=== PATIENT | female | born 1965 | race Caucasian/White ===

== ENCOUNTER 2021-07-12 14:27 | Emergency (ER) | payer OTHER | END 2021-07-12 16:30 | disposition left against medical advice (07) | LOC: EMS 14:30 | DX: R45.851 Suicidal ideations (principal); Z53.21 Procedure and treatment not carried out due to patient leaving prior to being seen by health care provider ==

== ENCOUNTER 2021-08-11 14:05 | Inpatient (IN) | payer MEDICAID, OTHER ==
[~2021-08-11] VITALS: Ht 172.7 cm; Wt 57.2 kg
[2021-08-11 14:46] LABS: GLUCOMETER DEV NAME(LOC) ERT.5; GLUCOSE,POINT OF CARE 89 MG/DL (70-110)
[2021-08-11] MEDS ORDERED: ZOLPIDEM TARTRATE 10 MG TABLET PO PRN (17:00)
[2021-08-11 17:45] LABS: COVID AG,FIA SOURCE NASOPHARYNGEAL
[2021-08-11 17:46] LABS: BASOPHILS % (AUTO) 0.5 % (0.0-2.0); EOSINOPHILS % (AUTO) 1.5 % (1.0-6.0); HEMOGLOBIN 11.4 g/dL (12.0-16.0); LYMPHOCYTES # (AUTO) 2.7 K/uL (1.0-4.8); LYMPHOCYTES % (AUTO) 36.7 % (22.0-44.0); MEAN CORPUSCULAR HEMOGLOBIN 29.9 pg (26.0-34.0); MEAN CORPUSCULAR HGB CONC 33.6 G/dL (31.0-37.0); MEAN CORPUSCULAR VOLUME 89 fL (80-100); MONOCYTES # (AUTO) 0.5 K/uL (0.1-1.0); MONOCYTES % (AUTO) 7.1 % (2.0-9.0); NEUTROPHILS % (AUTO) 54.2 % (40.0-70.0); PLATELET COUNT (AUTO) 231 K/uL (150-450); RED BLOOD CELL COUNT(AUTO) 3.81 MIL/uL (4.00-5.20); RED CELL DISTRIBUTION WIDTH 12.8 % (11.5-14.5)
[2021-08-11 17:55] LABS: ANION GAP 8 mmol/L (8-16); CALCIUM, TOTAL 8.9 mg/dL (8.8-10.5); CARBON DIOXIDE 30 mmol/L (22-29); CHLORIDE 106 mmol/L (98-107); CREATININE 0.57 mg/dL (0.60-1.30); GLOMERULAR FILTR. RATE CALC > 60 mL/min (>60); GLUCOSE,RANDOM 93 mg/dL (70-110); POTASSIUM 3.6 mmol/L (3.5-5.1); SODIUM SERUM 144 mmol/L (136-145); UREA NITROGEN, BLOOD 17 mg/dL (7-18)
[2021-08-11 18:01] LABS: ALANINE AMINOTRANSFERASE 45 U/L (12-78); ALBUMIN 3.2 g/dL (3.4-5.0); ALKALINE PHOSPHATASE 81 U/L (46-116); ASPARTATE AMINOTRANSFERASE 17 U/L (15-37); BILIRUBIN,TOTAL 0.4 mg/dL (0.1-1.0); TOTAL PROTEIN, SERUM 6.2 g/dL (6.4-8.2)
[2021-08-11 19:42] VITALS: BP 93/65
[2021-08-11] MEDS ORDERED: ACETAMINOPHEN 325 MG TABLET PO PRN (19:45)
[2021-08-12 08:00] VITALS: BP 125/71
[2021-08-12 08:16] LABS: CHOL/HDL RATIO 3.4 (3.9-5.7)
[2021-08-12] MEDS ORDERED: DOCUSATE SODIUM 100 MG CAPSULE PO PRN (11:30)
[2021-08-12] MEDS ORDERED: PETROLATUM,WHITE 28 GM JELLY TP PRN (11:30)
[2021-08-12] MEDS ORDERED: MAG HYDROX/AL HYDROX/SIMETH ES 30 ML SUSPENSION UDCUP PO PRN (11:30)
[2021-08-12] MEDS ORDERED: ONDANSETRON HCL 4 MG TABLET PO PRN (11:30)
[2021-08-12] MEDS ORDERED: MAGNESIUM HYDROXIDE SUSPENSION 30 ML UDCUP PO PRN (11:30)
[2021-08-12] MEDS ORDERED: ACETAMINOPHEN 325 MG TABLET PO PRN (11:30)
[2021-08-12] MEDS ORDERED: ALBUTEROL SULFATE HFA 90 MCG/PUFF 8 GM INHALER IH PRN (11:30)
[2021-08-12] MEDS ORDERED: NICOTINE 14 MG/24 HOUR PATCH TD PRN (11:30)
[2021-08-12] MEDS ORDERED: CloNIDine HCL 0.1 MG TABLET PO PRN (11:30)
[2021-08-12] MEDS ORDERED: GuaiFENesin/D-METHORPHAN [SUGAR-FREE] 200-20MG/10 ML SYRUP UDCUP PO PRN (11:30)
[2021-08-12] MEDS ORDERED: LOPERAMIDE HCL 2 MG CAPSULE PO PRN (11:30)
[2021-08-12] MEDS ORDERED: CITA-144 PO (12:53)
[2021-08-12 16:23] VITALS: BP 126/77
[2021-08-12] MEDS: HALOPERIDOL 5 MG TABLET PO PRN (17:53)
[2021-08-12] MEDS: LORazepam 2 MG TABLET PO PRN (17:53)
[2021-08-12] MEDS: RisperiDONE 1 MG TABLET PO SCH (21:00)
[2021-08-13 08:02] VITALS: BP 143/79
[2021-08-13] MEDS: CITALOPRAM HYDROBROMIDE 20 MG TABLET PO SCH (08:24)
[2021-08-13] MEDS: RisperiDONE 1 MG TABLET PO SCH ×3 (08:24→21:00)
[2021-08-13] MEDS: LORazepam 2 MG TABLET PO PRN (08:24)
[2021-08-13] MEDS: HALOPERIDOL 5 MG TABLET PO PRN (08:24)
[2021-08-13 09:43] LABS: APPEARANCE,URINE CLEAR (CLEAR); BILIRUBIN,URINE NEGATIVE (NEGATIVE); GLUCOSE, URINE (UA) NEGATIVE (NEGATIVE); KETONES,URINE NEGATIVE (NEGATIVE); LEUKOCYTE ESTERASE ,URINE NEGATIVE (NEGATIVE); NITRATE,URINE NEGATIVE (NEGATIVE); OCCULT BLOOD,URINE TRACE (NEGATIVE); PH,URINE 5.5 (5.0-8.0); PROTEIN,URINE NEGATIVE (NEGATIVE); UROBILINOGEN,URINE 0.2 mg/dL (<=1.0)
[2021-08-13 09:46] LABS: BACTERIA,URINE None Seen /HPF (None Seen); RBC,URINE 0-2 /HPF (0-2); WBC,URINE None Seen /HPF (0-5)
[2021-08-13 09:49] LABS: AMPHET/METH SCREEN,URINE NEGATIVE (NEGATIVE); BARBITURATE SCREEN, URINE NEGATIVE (NEGATIVE); BENZODIAZEPINES SCREEN,URINE NEGATIVE (NEGATIVE); CANNABINOID SCREEN,URINE NEGATIVE (NEGATIVE); COCAINE SCREEN,URINE NEGATIVE (NEGATIVE); METHADONE SCREEN, URINE NEGATIVE (NEGATIVE); OPIATE SCREEN,URINE NEGATIVE (NEGATIVE); PHENCYCLIDINE SCREEN,URINE NEGATIVE (NEGATIVE)
[2021-08-13 17:56] VITALS: BP 101/60
[2021-08-14 08:00] VITALS: BP 117/73
[2021-08-14] MEDS: CITALOPRAM HYDROBROMIDE 20 MG TABLET PO SCH (09:00)
[2021-08-14] MEDS: RisperiDONE 1 MG TABLET PO SCH ×2 (09:00→20:32)
[2021-08-14] MEDS: LORazepam 2 MG TABLET PO PRN (16:06)
[2021-08-14 16:57] VITALS: BP 120/74
[2021-08-15] MEDS: RisperiDONE 1 MG TABLET PO SCH ×2 (08:08→20:15)
[2021-08-15] MEDS: CITALOPRAM HYDROBROMIDE 20 MG TABLET PO SCH (08:08)
[2021-08-16] MEDS: CITALOPRAM HYDROBROMIDE 20 MG TABLET PO SCH (08:30)
[2021-08-16] MEDS: RisperiDONE 1 MG TABLET PO SCH ×2 (08:30→21:29)
[2021-08-16] MEDS: LORazepam 2 MG TABLET PO PRN ×3 (08:31→21:29)
[2021-08-16] MEDS: HALOPERIDOL 5 MG TABLET PO PRN ×2 (08:31→11:00)
[2021-08-16] MEDS: IBUPROFEN 400 MG TABLET PO PRN (11:30)
[2021-08-16 12:22] VITALS: BP 98/69
[2021-08-16 16:17] VITALS: BP 128/77
[2021-08-17] MEDS: CITALOPRAM HYDROBROMIDE 20 MG TABLET PO SCH (07:58)
[2021-08-17] MEDS: RisperiDONE 1 MG TABLET PO SCH (07:58)
[2021-08-17 08:15] VITALS: BP 98/61
[2021-08-17] MEDS: IBUPROFEN 400 MG TABLET PO PRN (08:15)
[2021-08-17 16:00] VITALS: BP 123/76
[2021-08-17] MEDS: LORazepam 2 MG TABLET PO PRN (16:47)
[2021-08-17] MEDS: HALOPERIDOL 5 MG TABLET PO PRN (16:47)
[2021-08-17] MEDS: RisperiDONE 2 MG TABLET PO SCH (21:12)
[2021-08-18 07:41] LABS: COVID AG,FIA SOURCE NASAL SWAB
[2021-08-18] MEDS: RisperiDONE 2 MG TABLET PO SCH ×2 (08:02→21:03)
[2021-08-18] MEDS: CITALOPRAM HYDROBROMIDE 20 MG TABLET PO SCH (08:02)
[2021-08-18 08:29] VITALS: BP 95/57
[2021-08-18 16:35] VITALS: BP 119/67
[2021-08-18] MEDS: LORazepam 2 MG TABLET PO PRN (16:38)
[2021-08-18] MEDS: HALOPERIDOL 5 MG TABLET PO PRN (16:39)
[2021-08-19 07:12] LABS: MAGNESIUM 1.7 mg/dL (1.80-2.40); PHOSPHORUS 3.7 mg/dL (2.5-4.9)
[2021-08-19] MEDS: RisperiDONE 2 MG TABLET PO SCH ×2 (09:28→20:11)
[2021-08-19] MEDS: MULTIVITAMINS, THERAPEUTIC TABLET PO SCH (09:28)
[2021-08-19] MEDS: CITALOPRAM HYDROBROMIDE 20 MG TABLET PO SCH (09:29)
[2021-08-19 16:02] VITALS: BP 95/55
[2021-08-19] MEDS ORDERED: MAGNESIUM OXIDE 400 MG TABLET PO ONE (16:30)
[2021-08-19] MEDS: HALOPERIDOL 5 MG TABLET PO PRN (16:30)
[2021-08-20] MEDS: RisperiDONE 2 MG TABLET PO SCH ×2 (09:58→20:05)
[2021-08-20] MEDS: CITALOPRAM HYDROBROMIDE 20 MG TABLET PO SCH (09:58)
[2021-08-20] MEDS: MULTIVITAMINS, THERAPEUTIC TABLET PO SCH (09:59)
[2021-08-20] MEDS: LORazepam 2 MG TABLET PO PRN (11:34)
[2021-08-20 16:03] VITALS: BP 98/55
[2021-08-21] MEDS: LORazepam 2 MG TABLET PO PRN (08:07)
[2021-08-21] MEDS: CITALOPRAM HYDROBROMIDE 20 MG TABLET PO SCH (08:07)
[2021-08-21] MEDS: RisperiDONE 2 MG TABLET PO SCH ×2 (08:07→20:02)
[2021-08-21] MEDS: MULTIVITAMINS, THERAPEUTIC TABLET PO SCH (08:07)
[2021-08-21 09:36] VITALS: BP 90/54
[2021-08-21 11:00] VITALS: BP 111/63
[2021-08-21] MEDS: HALOPERIDOL 5 MG TABLET PO PRN (15:52)
[2021-08-21 16:07] VITALS: BP 109/77
[2021-08-22] MEDS: IBUPROFEN 400 MG TABLET PO PRN ×2 (08:04→20:18)
[2021-08-22] MEDS: MULTIVITAMINS, THERAPEUTIC TABLET PO SCH (08:04)
[2021-08-22 08:05] VITALS: BP 94/51
[2021-08-22] MEDS: CITALOPRAM HYDROBROMIDE 20 MG TABLET PO SCH (08:05)
[2021-08-22] MEDS: RisperiDONE 2 MG TABLET PO SCH ×2 (08:05→20:18)
[2021-08-22 16:02] VITALS: BP 98/55
[2021-08-23] MEDS: CITALOPRAM HYDROBROMIDE 20 MG TABLET PO SCH (08:21)
[2021-08-23] MEDS: RisperiDONE 2 MG TABLET PO SCH ×2 (08:21→20:22)
[2021-08-23] MEDS: MULTIVITAMINS, THERAPEUTIC TABLET PO SCH (08:21)
[2021-08-23 08:45] VITALS: BP 63/33
[2021-08-23 16:10] VITALS: BP 108/60
[2021-08-23] MEDS: HALOPERIDOL 5 MG TABLET PO PRN (16:23)
[2021-08-23] MEDS: LORazepam 2 MG TABLET PO PRN (20:22)
[2021-08-24 08:08] VITALS: BP 94/55
[2021-08-24] MEDS: LORazepam 2 MG TABLET PO PRN (08:33)
[2021-08-24] MEDS: RisperiDONE 2 MG TABLET PO SCH ×2 (08:33→20:02)
[2021-08-24] MEDS: CITALOPRAM HYDROBROMIDE 20 MG TABLET PO SCH (08:33)
[2021-08-24] MEDS: MULTIVITAMINS, THERAPEUTIC TABLET PO SCH (08:33)
[2021-08-24] MEDS: IBUPROFEN 400 MG TABLET PO PRN (08:38)
[2021-08-24 16:46] VITALS: BP 106/73
[2021-08-24] MEDS: HALOPERIDOL 5 MG TABLET PO PRN (16:48)
[2021-08-25 08:17] LABS: COVID AG,FIA SOURCE NASAL SWAB
[2021-08-25 08:24] VITALS: BP 100/54
[2021-08-25] MEDS: MULTIVITAMINS, THERAPEUTIC TABLET PO SCH (11:14)
[2021-08-25] MEDS: RisperiDONE 2 MG TABLET PO SCH ×2 (11:14→20:25)
[2021-08-25] MEDS: CITALOPRAM HYDROBROMIDE 20 MG TABLET PO SCH (11:14)
[2021-08-25 16:00] VITALS: BP 110/80
[2021-08-25] MEDS: HALOPERIDOL 5 MG TABLET PO PRN (18:30)
[2021-08-26] MEDS: MULTIVITAMINS, THERAPEUTIC TABLET PO SCH (08:53)
[2021-08-26] MEDS: RisperiDONE 2 MG TABLET PO SCH ×2 (08:53→20:04)
[2021-08-26] MEDS: CITALOPRAM HYDROBROMIDE 20 MG TABLET PO SCH (08:53)
[2021-08-26 16:18] VITALS: BP 126/78
[2021-08-26] MEDS: HALOPERIDOL 5 MG TABLET PO PRN (16:35)
[2021-08-27 08:35] VITALS: BP 116/64
[2021-08-27] MEDS: MULTIVITAMINS, THERAPEUTIC TABLET PO SCH (08:47)
[2021-08-27] MEDS: CITALOPRAM HYDROBROMIDE 20 MG TABLET PO SCH (08:47)
[2021-08-27] MEDS: RisperiDONE 2 MG TABLET PO SCH ×2 (08:47→20:39)
[2021-08-27 16:12] VITALS: BP 119/76
[2021-08-28 08:12] VITALS: BP 118/70
[2021-08-28] MEDS: MULTIVITAMINS, THERAPEUTIC TABLET PO SCH ×2 (10:24→11:38)
[2021-08-28] MEDS: RisperiDONE 2 MG TABLET PO SCH ×3 (10:24→20:11)
[2021-08-28] MEDS: CITALOPRAM HYDROBROMIDE 20 MG TABLET PO SCH ×2 (10:24→11:38)
[2021-08-28] MEDS: HALOPERIDOL 5 MG TABLET PO PRN (16:08)
[2021-08-28 16:14] VITALS: BP 123/81
[2021-08-29] MEDS: CITALOPRAM HYDROBROMIDE 20 MG TABLET PO SCH (08:23)
[2021-08-29] MEDS: RisperiDONE 2 MG TABLET PO SCH ×2 (08:23→21:06)
[2021-08-29] MEDS: LORazepam 2 MG TABLET PO PRN (08:24)
[2021-08-29] MEDS: MULTIVITAMINS, THERAPEUTIC TABLET PO SCH (08:24)
[2021-08-29 16:05] VITALS: BP 95/58
[2021-08-29] MEDS: HALOPERIDOL 5 MG TABLET PO PRN (16:32)
[2021-08-30 08:00] VITALS: BP 97/56
[2021-08-30] MEDS: CITALOPRAM HYDROBROMIDE 20 MG TABLET PO SCH (09:46)
[2021-08-30] MEDS: RisperiDONE 2 MG TABLET PO SCH ×2 (09:46→20:00)
[2021-08-30] MEDS: MULTIVITAMINS, THERAPEUTIC TABLET PO SCH (09:47)
[2021-08-30 16:02] VITALS: BP 123/76
[2021-08-31] MEDS: LORazepam 2 MG TABLET PO PRN (08:09)
[2021-08-31] MEDS: RisperiDONE 2 MG TABLET PO SCH ×2 (08:09→20:32)
[2021-08-31] MEDS: CITALOPRAM HYDROBROMIDE 20 MG TABLET PO SCH (08:09)
[2021-08-31] MEDS: IBUPROFEN 400 MG TABLET PO PRN ×2 (08:09→17:38)
[2021-08-31] MEDS: MULTIVITAMINS, THERAPEUTIC TABLET PO SCH (08:09)
[2021-08-31 12:53] LABS: COVID AG,FIA SOURCE NASAL SWAB
[2021-08-31 16:03] VITALS: BP 123/77
[2021-08-31 17:38] VITALS: BP 125/79
[2021-08-31] MEDS: HALOPERIDOL 5 MG TABLET PO PRN (17:54)
[2021-08-31 18:25] LABS: APPEARANCE,URINE CLEAR (CLEAR); BILIRUBIN,URINE NEGATIVE (NEGATIVE); GLUCOSE, URINE (UA) NEGATIVE (NEGATIVE); KETONES,URINE NEGATIVE (NEGATIVE); LEUKOCYTE ESTERASE ,URINE SMALL (NEGATIVE); NITRATE,URINE NEGATIVE (NEGATIVE); OCCULT BLOOD,URINE NEGATIVE (NEGATIVE); PH,URINE 6.5 (5.0-8.0); PROTEIN,URINE NEGATIVE (NEGATIVE); UROBILINOGEN,URINE 0.2 mg/dL (<=1.0)
[2021-08-31 18:34] LABS: BACTERIA,URINE None Seen /HPF (None Seen); RBC,URINE None Seen /HPF (0-2); WBC,URINE 0-2 /HPF (0-5)
[2021-09-01] MEDS: MULTIVITAMINS, THERAPEUTIC TABLET PO SCH (08:07)
[2021-09-01] MEDS: RisperiDONE 2 MG TABLET PO SCH ×2 (08:07→20:25)
[2021-09-01] MEDS: CITALOPRAM HYDROBROMIDE 20 MG TABLET PO SCH (08:07)
[2021-09-01 08:11] VITALS: BP 104/67
[2021-09-01] MEDS: LORazepam 2 MG TABLET PO PRN (09:44)
[2021-09-01 13:23] LABS: BILIRUBIN,URINE NEGATIVE (NEGATIVE); GLUCOSE, URINE (UA) NEGATIVE (NEGATIVE); KETONES,URINE NEGATIVE (NEGATIVE); LEUKOCYTE ESTERASE ,URINE SMALL (NEGATIVE); NITRATE,URINE NEGATIVE (NEGATIVE); OCCULT BLOOD,URINE NEGATIVE (NEGATIVE); PH,URINE 5.5 (5.0-8.0); PROTEIN,URINE NEGATIVE (NEGATIVE); UROBILINOGEN,URINE 0.2 mg/dL (<=1.0)
[2021-09-01 13:29] LABS: APPEARANCE,URINE SLIGHTLY CLOUDY (CLEAR)
[2021-09-01 15:03] LABS: BACTERIA,URINE None Seen /HPF (None Seen); RBC,URINE None Seen /HPF (0-2); SQUAMOUS EPITHELIAL CELL,UR Few /LPF (None Seen); WBC,URINE 0-2 /HPF (0-5); YEAST,URINE None Seen /HPF (None Seen)
[2021-09-01 16:36] VITALS: BP 105/63
[2021-09-01] MEDS: HALOPERIDOL 5 MG TABLET PO PRN (16:37)
[2021-09-02 08:17] VITALS: BP 97/62
[2021-09-02] MEDS: CITALOPRAM HYDROBROMIDE 20 MG TABLET PO SCH (08:45)
[2021-09-02] MEDS: MULTIVITAMINS, THERAPEUTIC TABLET PO SCH (08:45)
[2021-09-02] MEDS: RisperiDONE 2 MG TABLET PO SCH ×2 (08:51→20:39)
[2021-09-02 16:18] VITALS: BP 143/90
[2021-09-02 20:44] VITALS: BP 148/84
[2021-09-02] MEDS: IBUPROFEN 400 MG TABLET PO PRN (20:44)
[2021-09-03] MEDS: RisperiDONE 2 MG TABLET PO SCH ×2 (09:19→20:03)
[2021-09-03] MEDS: MULTIVITAMINS, THERAPEUTIC TABLET PO SCH (09:19)
[2021-09-03] MEDS: CITALOPRAM HYDROBROMIDE 20 MG TABLET PO SCH (09:19)
[2021-09-03 09:56] VITALS: BP 119/92
[2021-09-03 16:13] VITALS: BP 103/62
[2021-09-04] MEDS: RisperiDONE 2 MG TABLET PO SCH (08:53)
[2021-09-04] MEDS: MULTIVITAMINS, THERAPEUTIC TABLET PO SCH (08:53)
[2021-09-04] MEDS: CITALOPRAM HYDROBROMIDE 20 MG TABLET PO SCH (08:53)
[2021-09-04] MEDS ORDERED: RISP2TAB45 PO (10:09)
== END 2021-09-04 11:05 | disposition home or self-care (01) | DRG 750 ==
LOC: EMS 14:11 → 3EC 18:41
PROVIDERS: ADMIT Psychiatry & Neurology Psychiatry; ATTEND Psychiatry & Neurology Psychiatry
DX: F20.0 Paranoid schizophrenia (principal); Z59.00 Homelessness unspecified; D64.9 Anemia, unspecified; I10 Essential (primary) hypertension; Z20.822 Contact with and (suspected) exposure to COVID-19; F12.10 Cannabis abuse, uncomplicated; F10.10 Alcohol abuse, uncomplicated; Z71.41 Alcohol abuse counseling and surveillance of alcoholic; Z87.891 Personal history of nicotine dependence; Z91.14 Patient's other noncompliance with medication regimen; Z91.51 Personal history of suicidal behavior; Z71.51 Drug abuse counseling and surveillance of drug abuser
CPT/HCPCS: 71110; 73521; 80053; 80061; 80307; 81001; 82962; 83735; 84100; 85025; 93005; 99285; G0480